=== PATIENT | male | born 1960 | race Caucasian/White ===

== ENCOUNTER 2023-09-04 20:37 | Emergency (ER) | payer BC, SELFPAY ==
[2023-09-04] VITALS (14 sets, daily range): BP systolic 116–151; BP diastolic 51–75; BMI 39.6
--- NOTE | 2023-09-04 20:50 | ED.GENMED ---
History of Present Illness
General
Chief Complaint: Chest Pain
Source: patient
Exam Limitations: none
Time Seen by Provider: 09/04/23 20:48
Nursing documentation reviewed up to this point in time: agreed with
Travel History
Have you had any contact with someone who has COVID-19?: No
Do you have any symptoms of coronavirus? Fever > 100 degrees, chills, cough, shortness of breath, sore throat, loss of taste or smell, muscle aches, or headache?: No
History of Present Illness
History of Present Illness:
63-year-old male presents to the emergency department from complaining of chest tightness and pain that started around 7:30 PM. He states his witnessed him pass out before she called 911. EMS gave 4 x 81 mg aspirin and 2 nitroglycerin.
Past History
Past History
ED Past Medical History: HTN, Hypercholesterolemia, Renal failure (Chronic kidney disease creatinine is 2.2.) and Other (Cellulitis, DJD)
ED Past Surgical History: Orthopedic (Left knee arthroscopy 2016)
Social History
Tobacco: Non-smoker
Alcohol: None
Drug: None
Personal:
Living: with family
Employment: Employed
Family History
Family History: Other (Noncontributory)
Phy Exam
Physical Exam
Physical Exam:
Physical Exam
General: no apparent distress, not acutely ill
Neck: supple. no meningeal signs. normal posterior pharynx
Heart: s1/s2 regular rate and rhythm, no murmur. equal radial
pulses.
HEENT: Pupils equal round reactive to light, EOMI
Lungs: no acute respiratory distress. clear bilaterally, chest wall tender to palpation
Abdomen: normal bowel sounds. not tender. no CVAT
Neuro: alert and oriented. no focal neurological deficits cranial nerves II through XII intact
Skin: no rash
Psychiatric: well kept. interactive and cooperative
Extremities: no edema. no calf tenderness. negative homans. good distal pulses
Scores
Heart Score for Chest Pain Patients
STEMI patient?: No
History: Moderately Suspicious
ECG: Normal
Age: >45 - <65 years
Risk Factors: 1 or 2 Risk Factors
Troponin: </= Normal Limit
Heart Score for Chest Pain Patients: 3
Heart Score Risk: 2.5% MACE over next 6 weeks
Course
Orders/Labs/Results
Orders:
Orders
09/04/23 20:38
Electrocardiogram (*1) Urgent
Reason for Study: Chest Pain
Cardiac Monitoring- Treatment ONCE
EKG- Treatment ONCE
IV Insert/Care/Rem.- Treatment PRN
O2 Therapy [RESP] Urgent
Titrate/Wean O2 to maintain O2 sat greater than (%): 90
Special Instructions: Maintain sats >/=90%
Pulse Ox/spot Check [RESP] Urgent
Quantity: 1
Special Instructions: ON ROOM AIR
09/04/23 20:44
Complete Blood Count/With Diff Urgent
Comprehensive Metabolic Panel Urgent
Troponin I Urgent
09/04/23 20:50
Nitroglycerin Sublingual [Nitrostat (Sublingual)] 0.4 mg SL NOW STA
09/04/23 21:04
Morphine Sulfate 4 mg IV NOW STA
Ondansetron Injectable [Zofran] 4 mg IV NOW STA
09/04/23 21:11
Nitroglycerin Ointment [Nitro-Bid] 1 inch TOPICAL NOW STA
09/04/23 22:29
Chest [CR Chest - 2 Views ] Urgent
Comment:
Reason For Exam: cp
09/05/23 00:36
Electrocardiogram (*1) Urgent
Reason for Study: Chest Pain
EKG- Treatment ONCE
09/05/23 00:38
Troponin I Urgent
Abnormal Lab Results
09/04/23
20:44
RBC 4.42 L 10^6/uL
(4.70-6.10)
Hct 38.8 L %
(39.0-52.0)
MCH 31.2 H pg
(27.0-31.0)
MPV 11.2 H fL
(7.4-10.4)
Abs Immat Gran (auto) 0.1 H 10^3/uL
(0-0.05)
Absolute Monos (auto) 0.9 H 10^3/uL
(0.1-0.6)
Glucose 162 H mg/dl
(70-99)
09/04/23 20:44
09/04/23 20:44
Vital Signs
Initial and Last Documented VS:
Initial Vital Signs
Temp Pulse Resp BP Pulse Ox
98.5 F 66 16 151/75 96
09/04/23 20:39 09/04/23 20:39 09/04/23 20:39 09/04/23 20:39 09/04/23 20:39
Last Documented Vital Signs
Temp Pulse Resp BP Pulse Ox
98.5 F 61 17 125/55 94
09/04/23 20:39 09/05/23 00:00 09/05/23 00:00 09/05/23 00:00 09/05/23 00:00
MDM/Problems Addressed
Differential Diagnosis Includes:
ACS, PE
MDM/Problems Addressed:
63-year-old male with chest pain, likely chest wall pain, doubt ACS. Feel troponin is negative. This feels similar to the pain he has had in the past. Will discharge to follow-up with cardiology. Return precautions given
Chronic conditions affecting care: HTN
Acute Exacerbation and/or Progression of Chronic Illness: HTN
*Radiology
Radiology exam reviewed: preliminary read by ED provider (Chest x-ray no acute findings)
*Pulse Oximetry
Patient hypoxic: no
*EKG
Interpreted by ED Provider?: Yes
EKG Intrepretation Date: 09/04/23
EKG Intrepretation Time: 20:45
Interpretation: abnormal
Comparison EKG: no changes
Heart Rate: 66
Rate: normal
Rhythm: sinus
[place]: normal axis
Interval: first degree heart block
QRS Pattern: right bundle branch block
Ischemia: no ischemia
*Welding Machine Operator Electron Beam Interpretation
Rate: normal
Interpretation: normal
Heart Rate: 68
Rhythm: sinus
*Critical Care Note
Total Time (30-74mins, 75-104mins- exclusive of procedures): Not Applicable
Data Reviewed
Review of Other/Old Records Reveals: Testing (Prior stress test May 2023 normal)
Patient Management
Social determinants of health affecting care: Living situation and Strong social support
Discussion with other providers: Mechanical Engineering Director (Discussed with Dr. Knight and Dr. Silva, agree no signs of ACS EKG)
Escalation/DeEscalation of care consider admission/obs:
Admit not indicated
ED Attending Note
-
Portions of this chart may have been created with voice recognition software.� Occasional wrong word or��sound alike� substitutions may have occurred due to the inherent limitations of voice recognition software.
Discharge Plan
Departure
Patient Disposition: Home (Routine Discharge)
Date of Disposition: 09/05/23
Time of Disposition: 02:00
Patient with high blood pressure during this ER visit?: Yes
Condition: Good
Discharge Problem:
Chest pain
Instructions: Chest Pain DCA Follow Up, BLOOD PRESSURE
Prescriptions:
No Action
atorvastatin 40 mg Tablet
40 mg PO QPM Qty: 30 0RF
valsartan 80 mg tablet
80 mg PO DAILY@0430
ibuprofen 200 mg Tablet
600 mg PO HS
guaifenesin [Mucinex] 600 mg Tablet Extended Release 12hr
600 mg PO DAILY@0430
aspirin 81 mg tablet,chewable
81 mg PO DAILY@0430
metoprolol succinate 25 mg tablet extended release 24 hr
25 mg PO DAILY@0430
Referrals:
Chris Crowley, DO [Family Provider] -
Interventions
Interventions:
*Risk Screen - Suicide Last Done: 09/04/23 20:39
*General Assessment Last Done: 09/04/23 20:39
*Neglect/Abuse Screening Last Done: 09/04/23 20:39
*ED COVID-19 Vaccine History Last Done: 09/04/23 20:39
ED- Cardiac Assessment Last Done: 09/04/23 20:44
[2023-09-04] MEDS: NITROSTAT (SUBLINGUAL) 0.400000000000000022 MG SL (20:55)
[2023-09-04 21:00] LABS: % Basophils 0.6 % (0-2); % Immature Granulocytes 0.5 % (0-0.5); % Monocytes 9.3 % (1.7-9.3); % Neutrophils 53.6 % (42.2-75.2); Absolute Basophils 0.1 10^3/uL (0-0.2); Absolute Eosinophils 0.3 10^3/uL (0-0.7); Absolute Immature Granulocytes 0.1 10^3/uL (0-0.05); Absolute Lymphocytes 3.3 10^3/uL (1.2-3.4); Absolute Monocytes 0.9 10^3/uL (0.1-0.6); Absolute Neutrophils 5.3 10^3/uL (1.4-6.5); Hematocrit 38.8 % (39.0-52.0); Hemoglobin 13.8 g/dL (13.0-18.0); Mean Corp Hgb Conc. 35.6 g/dL (33.0-37.0); Mean Corpuscular Hgb 31.2 pg (27.0-31.0); Mean Corpuscular Volume 87.8 fL (80.0-94.0); Mean Platelet Volume 11.2 fL (7.4-10.4); Nucleated Red Blood Cells % 0 % (-); Platelet Count 201 10^3/uL (130-400); Red Blood Cell Count 4.42 10^6/uL (4.70-6.10)
[2023-09-04] MEDS: NITRO-BID 1 INCH TOPICAL (21:14)
[2023-09-04 21:16] LABS: ALT (SGPT) 36 U/L (0-50); AST (SGOT) 34 U/L (17-59); Albumin 3.9 g/dl (3.5-5.0); Alkaline Phosphatase 64 U/L (38-126); Blood Urea Nitrogen 17 mg/dl (9-20); Calcium 9.2 mg/dl (8.4-10.2); Carbon Dioxide 25 mmol/L (22-30); Chloride 101 mmol/L (98-107); Estimated Creatinine Clearance > 125 ml/min; Glucose 162 mg/dl (70-99); Potassium 3.9 mmol/L (3.5-5.1); Sodium 136 mmol/L (135-145); Total Bilirubin 0.7 mg/dl (0.2-1.3); eGFR > 60.00
[2023-09-04 21:23] LABS: Troponin I < 0.012 ng/ml
[2023-09-05] VITALS: BP 125/55
[2023-09-05 01:00] VITALS: BP 122/56
[2023-09-05 01:09] LABS: Troponin I < 0.012 ng/ml
[2023-09-05 02:00] VITALS: BP 132/51
== END 2023-09-05 02:19 | disposition home or self-care (01) ==
LOC: EMR 20:37
PROVIDERS: EMERGENCY PHYSICIAN Emergency Medicine; FAMILY PHYSICIAN Family Medicine
DX: R07.89 Other chest pain (principal); I10 Essential (primary) hypertension
CPT/HCPCS: 99285; 71046; 80053; 84484; 85025; 93005

== ENCOUNTER 2023-09-14 08:45 | Emergency (ER) | payer OTHER, SELFPAY ==
[2023-09-14] VITALS (9 sets, daily range): BP systolic 117–140; BP diastolic 57–64; BMI 42.7
--- NOTE | 2023-09-14 08:46 | ED.GENMED ---
History of Present Illness
General
Chief Complaint: Chest Pain
Time Seen by Provider: 09/14/23 08:46
History of Present Illness
History of Present Illness:
HPI: Patient came in by ambulance from his place of work. He has been here in the recent past with chest pain and again had some mild chest discomfort yesterday. 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
discomfort. He cannot qualify what it felt like. As he was getting out of the forklift, he passed out and struck his head on the door the forklift. He also complained of some neck discomfort. He denies smoking history but does have a history of
high blood pressure and high cholesterol. EMS gave nitroglycerin and aspirin and there has been no improvement with his pain. Although he appears fairly comfortable, he describes the pain as 10 out of 10.
EXAM:
GENERAL: Well appearing in no distress
HEENT: Moist oral mucosa
CARDIOVASCULAR: No murmurs, normal heart rate and rhythm, moderate anterior chest wall tenderness to the left sternal border
PULMONARY: No respiratory distress, breath sounds are clear and equal
ABDOMEN: Soft with no peritoneal signs, no tenderness
NEUROLOGIC: Excellent strength all extremities, no coordination deficits
PSYCHIATRIC: Appropriate mental status, normal insight and judgement
EXTREMITIES: Nontender, no edema, moves all extremities equally
SKIN: No rash, no lesions
ED COURSE:
8:50 AM: I initially evaluated patient
NUMBER AND COMPLEXITY OF PROBLEMS ADDRESSED AT THE ENCOUNTER
� Chronic conditions affecting care: High blood pressure, hyperlipidemia
� Acute Exacerbation and/or Progression of Chronic Illness: This is an acute but recurring problem
� Differential Diagnosis includes: Costochondritis, chest wall pain, dysrhythmia, ACS
AMOUNT AND/OR COMPLEXITY OF DATA TO BE REVIEWED AND ANALYZED
� I performed an independent evaluation of and my interpretation is:
EKG: Sinus 56, right bundle branch block with associated ST abnormality but no significant change in comparison to 09/05/2023
CT: CTA personally viewed�no evidence of dissection, CT head and neck also unremarkable however radiologist did comment on a new 1 cm area of low-density on the right
X-rays:
Laboratory Studies: CBC unremarkable, first troponin negative, chemistries unremarkable, second troponin negative
Other:
� Review of other/old records: I reviewed old records, on 05/13/2023, Dr. Cohn read a stress nuclear test but was felt to be low risk. I also reviewed the ED notes from the last 2 visits.
� Clinical information was obtained by an independent historian: I spoke to at
� Prescriptions/Medications Considered but not given:
� Further testing considered but not performed:
RISK OF COMPLICATIONS AND/OR MORBIDITY OR MORTALITY OF PATIENT MANAGEMENT
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
� Discussion with other providers:
� Escalation of care including admission/observation vs risk of discharge considered: The patient had chest discomfort that started about an hour ago associated syncope. Initial EKG unremarkable. Will obtain CT imaging for
further evaluation. CT imaging unremarkable, he is in a sinus with 2 negative troponins. I favor more of a noncardiac etiology however the patient's pain persists. He has had cardiac evaluation in the recent past. I recommend that he follows up
with cardiology as an outpatient. I informed him of the CT brain reading and recommend he also follows up with neurology.
Past History
Past History
ED Past Medical History: HTN, Hypercholesterolemia, Renal failure (Chronic kidney disease creatinine is 2.2.) and Other (Cellulitis, DJD)
ED Past Surgical History: Orthopedic (Left knee arthroscopy 2016)
Social History
Tobacco: Non-smoker
Alcohol: None
Drug: None
Personal:
Living: with family
Employment: Employed
Family History
Family History: Other (Noncontributory)
Phy Exam
Physical Exam
Physical Exam:
See HPI
Scores
Heart Score for Chest Pain Patients
STEMI patient?: Not applicable
Course
Orders/Labs/Results
Orders:
Orders
09/14/23 08:51
Electrocardiogram (*1) Urgent
Reason for Study: Chest Pain
Cardiac Monitoring- Treatment ONCE
EKG- Treatment ONCE
IV Insert/Care/Rem.- Treatment PRN
09/14/23 08:58
CT Cervical Spine W/o Iv Contr Urgent
Comment:
Reason For Exam: head trauma midline cspine tender
CT Head W/o Iv Contrast Urgent
Comment:
Reason For Exam: syncope head trauma
Complete Blood Count/With Diff Urgent
Comprehensive Metabolic Panel Urgent
Troponin I Urgent
09/14/23 08:59
CT Chest Angio W/wo Iv Contras Urgent
Comment:
Reason For Exam: chest pain syncope eval for dissection
09/14/23 10:51
Ketorolac [Toradol] 15 mg IV NOW STA
09/14/23 11:34
Electrocardiogram (*1) Urgent
Reason for Study: Other
Other Reason for Exam: 2nd EKG
09/14/23 11:35
EKG- Treatment ONCE
09/14/23 11:39
Troponin I Urgent
Abnormal Lab Results
09/14/23
08:58
RBC 4.28 L 10^6/uL
(4.70-6.10)
Hct 38.1 L %
(39.0-52.0)
MCH 31.1 H pg
(27.0-31.0)
MPV 11.5 H fL
(7.4-10.4)
Abs Immat Gran (auto) 0.1 H 10^3/uL
(0-0.05)
Absolute Monos (auto) 0.8 H 10^3/uL
(0.1-0.6)
Immature Gran % 0.7 H %
(0-0.5)
Monocytes % 9.4 H %
(1.7-9.3)
Glucose 105 H mg/dl
(70-99)
09/14/23 08:58
09/14/23 08:58
Vital Signs
Initial and Last Documented VS:
Initial Vital Signs
Temp Pulse Resp BP Pulse Ox
98.4 F 55 15 140/64 99
09/14/23 08:52 09/14/23 08:52 09/14/23 08:52 09/14/23 08:52 09/14/23 08:52
Last Documented Vital Signs
Temp Pulse Resp BP Pulse Ox
98.4 F 55 15 140/64 98
09/14/23 08:52 09/14/23 08:52 09/14/23 08:52 09/14/23 08:52 09/14/23 09:02
*Critical Care Note
Total Time (30-74mins, 75-104mins- exclusive of procedures): Not Applicable
ED Attending Note
-
Portions of this chart may have been created with voice recognition software.� Occasional wrong word or��sound alike� substitutions may have occurred due to the inherent limitations of voice recognition software.
Discharge Plan
Departure
Patient Disposition: Home (Routine Discharge)
Date of Disposition: 09/14/23
Time of Disposition: 12:24
Patient with high blood pressure during this ER visit?: Yes
Discharge Problem:
Chest pain
Instructions: Chest Pain DCA Follow Up
Prescriptions:
No Action
atorvastatin 40 mg Tablet
40 mg PO QPM Qty: 30 0RF
valsartan 80 mg tablet
80 mg PO DAILY
aspirin 81 mg tablet,chewable
81 mg PO DAILY
metoprolol succinate 25 mg tablet extended release 24 hr
25 mg PO DAILY
ibuprofen [Advil] 200 mg Tablet
600 mg PO HS
guaifenesin 1,200 mg Tablet Extended Release 12hr
1,200 mg PO DAILY
Referrals:
Andre Rushing MD [Active] - Follow up in 2-3 days
Demond Song MD [Active] - Follow up in 2-3 days
Chris Crowley, [Family Provider] -
Activity Restrictions/Additional Instructions:
Somebody from [facility] should be contact to arrange close follow-up. The cardiac blood work here was normal x 2. CT imaging shows no sign of aortic dissection. CT of the cervical spine shows no injury CT of the brain shows
no bleeding. The CT of the brain did show a subtle abnormality which is likely of no clinical significant but I recommend that you follow-up with a neurologist�'a new 1 cm focal area of nonspecific white matter change in the right centrum
semiovale'. I have given you the contact information for a local neurologist.
Interventions
Interventions:
*Risk Screen - Suicide Last Done: 09/14/23 08:52
*General Assessment Last Done: 09/14/23 08:52
*Neglect/Abuse Screening Last Done: 09/14/23 08:52
*ED COVID-19 Vaccine History Last Done: 09/14/23 09:01
ED- Cardiac Assessment Last Done: 09/14/23 09:02
[2023-09-14 09:13] LABS: % Basophils 0.7 % (0-2); % Eosinophils 2.8 % (0-6); % Immature Granulocytes 0.7 % (0-0.5); % Lymphocytes 30.9 % (20.5-51.1); % Monocytes 9.4 % (1.7-9.3); % Neutrophils 55.5 % (42.2-75.2); Absolute Basophils 0.1 10^3/uL (0-0.2); Absolute Eosinophils 0.2 10^3/uL (0-0.7); Absolute Immature Granulocytes 0.1 10^3/uL (0-0.05); Absolute Lymphocytes 2.6 10^3/uL (1.2-3.4); Absolute Monocytes 0.8 10^3/uL (0.1-0.6); Absolute Neutrophils 4.6 10^3/uL (1.4-6.5); Hematocrit 38.1 % (39.0-52.0); Hemoglobin 13.3 g/dL (13.0-18.0); Mean Corp Hgb Conc. 34.9 g/dL (33.0-37.0); Mean Corpuscular Hgb 31.1 pg (27.0-31.0); Mean Platelet Volume 11.5 fL (7.4-10.4); Nucleated Red Blood Cells % 0 % (-); Platelet Count 195 10^3/uL (130-400); Red Blood Cell Count 4.28 10^6/uL (4.70-6.10); Red Cell Dist. Width 12.1 % (11.5-14.5); White Blood Cell Count 8.3 10^3/uL (4.8-10.8)
[2023-09-14 09:27] LABS: ALT (SGPT) 28 U/L (0-50); AST (SGOT) 26 U/L (17-59); Albumin 4.2 g/dl (3.5-5.0); Alkaline Phosphatase 69 U/L (38-126); Blood Urea Nitrogen 12 mg/dl (9-20); Carbon Dioxide 28 mmol/L (22-30); Chloride 105 mmol/L (98-107); Estimated Creatinine Clearance 117 ml/min; Glucose 105 mg/dl (70-99); Potassium 4.5 mmol/L (3.5-5.1); Sodium 138 mmol/L (135-145); Total Bilirubin 0.5 mg/dl (0.2-1.3); Total Protein 6.7 g/dl (6.3-8.2); eGFR > 60.00
[2023-09-14 09:38] LABS: Troponin I < 0.012 ng/ml
[2023-09-14] MEDS: TORADOL 15 MG IV (11:02)
[2023-09-14 12:09] LABS: Troponin I < 0.012 ng/ml
== END 2023-09-14 13:20 | disposition home or self-care (01) ==
LOC: EMR 08:45
PROVIDERS: EMERGENCY PHYSICIAN Emergency Medicine; FAMILY PHYSICIAN Family Medicine
DX: R07.89 Other chest pain (principal); S09.90XA Unspecified injury of head, initial encounter; W22.09XA Striking against other stationary object, initial encounter; I12.9 Hypertensive chronic kidney disease with stage 1 through stage 4 chronic kidney disease, or unspecified chronic kidney disease; N18.9 Chronic kidney disease, unspecified
CPT/HCPCS: 99285; 96374; 70450; 71275; 72125; 80053; 84484; 85025; 93005; Q9967

== ENCOUNTER 2023-09-18 06:08 | Day surgery (SDC) | payer OTHER, SELFPAY ==
[2023-09-18] VITALS (13 sets, daily range): BP systolic 82–140; BP diastolic 34–71; BMI 38.9
[2023-09-18 06:56] LABS: Glucose - Point of Care 116 mg/dl (70-99)
[2023-09-18] MEDS: NSS 1000 IV (08:54)
--- NOTE | 2023-09-18 09:15 | ITS.CL.CATH ---
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
Cardiac Catheterization
Procedure Report:
LEFT HEART CATHETERIZATION
Date of Procedure: September 18, 2023
Referring: Na Fagan PA-C, John Valverde MD
PROCEDURES:
1. Left catheterization, coronary angiogram.
2. Ultrasound-guided access
INDICATION: Mr. Pearl is a 63-year-old gentleman with past medical history of hypertension, hyperlipidemia who has had 3 separate ED visits for recurrent chest discomfort despite a negative stress test in May who is being referred for a left
heart catheterization to rule out obstructive CAD.
ACCESS: Right radial artery, 6 Frisian sheath, under ultrasound guidance.
HEMODYNAMICS : (mmHg)
AO (s/d) : 153/88
LV (s/d) : 153/10
LVEDP : 21
CORONARY FINDINGS
DOMINANCE: Right
LEFT MAIN: The left main artery is a large-caliber vessel which gives rise to a left anterior descending artery and the left circumflex artery. There is minimal luminal irregularities.
LEFT ANTERIOR DESCENDING: The left anterior descending artery is a medium to large caliber vessel which gives rise to 1 major diagonal branch as it courses through the anterior interventricular groove and wraps around the apex. There is mild
diffuse atherosclerotic plaque.
CIRCUMFLEX: The left circumflex artery is a medium caliber vessel which gives rise to 1 major obtuse marginal branch and 1 small to medium caliber posterolateral branch. There is mild diffuse atherosclerotic plaque.
RIGHT CORONARY ARTERY: The right coronary artery is a large-caliber, dominant vessel which gives rise to the right posterior descending artery and the right posterolateral system. There is mild diffuse atherosclerotic plaque.
RADIATION SUMMARY: Fluoro Time (min): 2.5, Dose (mGy): 410.77, DAP (Gy.cm2) : 27.9
SEDATION: 41 minutes of procedural sedation was utilized. An independent medical accounts receivable specialist was present to assist with and help manage the patient's level of consciousness and physiologic status.
Closure Device: Vascular band over right radial artery, 11 cc of air
CONCLUSIONS
1. Non-obstructive coronary artery disease.
2. Elevated LVEDP at 21 mmHg..
RECOMMENDATIONS
1. Goal-directed medical therapy for non-obstructive coronary artery disease and optimization of cardiovascular risk factors.
2. He did have director of cardiac cath lab placed prior to discharge for evaluation of underlying arrhythmias given recent syncope.
Copy to: Na Fagan PA-C, John Valverde MD
Karina Rivero MD, FAC, [facility]
--- NOTE | 2023-09-18 10:44 | PTCARENOTE ---
Pt was scheduled to have a halter monitor on for Thursday. I called [facility] office and Karlie Alexis came to cath recovery and placed to monitor on pt , with instructions to pt and with good understanding. Radial access site soft non tender, no
bleeding . all discharge instructions given to pt and with good understanding
--- NOTE | 2023-09-18 11:56 | PTCARENOTE ---
Pt d/se after instructions explained . radial site soft non tender . with a dsd intact. IV d/se intact.Pt noted small amt of bleeding from his rt inner ear.
== END 2023-09-18 11:30 | disposition home or self-care (01) ==
LOC: CATH 06:08
PROVIDERS: ATTENDING PHYSICIAN Internal Medicine Interventional Cardiology; FAMILY PHYSICIAN Student in an Organized Health Care Education/Training Program; OTHER PHYSICIAN Internal Medicine Cardiovascular Disease
DX: I25.10 Atherosclerotic heart disease of native coronary artery without angina pectoris (principal); R07.89 Other chest pain; E78.5 Hyperlipidemia, unspecified; I70.0 Atherosclerosis of aorta; R55 Syncope and collapse; I12.9 Hypertensive chronic kidney disease with stage 1 through stage 4 chronic kidney disease, or unspecified chronic kidney disease; N18.9 Chronic kidney disease, unspecified; Z79.82 Long term (current) use of aspirin
CPT/HCPCS: 99152; 99153; 76937; 82962; 93458; C1894; Q9967

== ENCOUNTER → 2024-05-26 07:11 | Outpatient (REF) | payer OTHER, SELFPAY | LOC: RCS 07:11 | PROVIDERS: ATTENDING PHYSICIAN Nuclear Medicine Nuclear Cardiology; FAMILY PHYSICIAN Student in an Organized Health Care Education/Training Program | DX: I10 Essential (primary) hypertension (principal); I45.10 Unspecified right bundle-branch block; I35.0 Nonrheumatic aortic (valve) stenosis | CPT/HCPCS: 93306; Q9950 ==